=== PATIENT | female | born 1940 | race Two or more races ===

== ENCOUNTER 2023-12-04 06:32 | Day surgery (SDC) | payer OTHER ==
[2023-12-04] MEDS ORDERED: DIPHENHYDRAMINE HCL 50 MG/ML VIAL 1ML IV ONE (09:15)
[2023-12-04] MEDS ORDERED: MIDAZOLAM HCL 2 MG/2 ML VIAL IV ONE (09:15)
[2023-12-04] MEDS ORDERED: fentaNYL CITRATE 50 MCG/ML AMPUL IV ONE (09:15)
[2023-12-04] MEDS ORDERED: ENALAPRILAT DIHYDRATE 2.5 MG/2 ML VIAL IV ONE (09:45)
[2023-12-04] MEDS ORDERED: ENALAPRILAT DIHYDRATE 1.25 MG/ML VIAL IV ONE (09:46)
== END 2023-12-04 12:05 | disposition home or self-care (01) ==
LOC: AMB-ENDOS 06:32 → CIR.AMB 06:32 → AMB-ENDOS 12:05 → CIR.AMB 13:30
PROVIDERS: ATTEND Surgery
DX: K57.30 Diverticulosis of large intestine without perforation or abscess without bleeding (principal); N32.1 Vesicointestinal fistula; K64.8 Other hemorrhoids

== ENCOUNTER 2024-01-30 11:00 | Inpatient (IN) | payer OTHER ==
[~2024-01-30] VITALS: Ht 160 cm; Wt 53.1 kg
[2024-02-02 08:23] VITALS: BP 145/79
[2024-02-02] MEDS ORDERED: LUMIGAN2.5 M1 OP (08:27)
[2024-02-02] MEDS ORDERED: ENALAPRIL MALEA10 MG PO (08:27)
[2024-02-06] MEDS ORDERED: CEFTRIAXONE SODIUM 2,000 MG VIAL IV ONE (12:15)
[2024-02-06] MEDS ORDERED: METRONIDAZOLE/SODIUM CHLORIDE 500 MG/100 ML PIGGYBACK IV ONE (12:15)
[2024-02-06] MEDS ORDERED: METRONIDAZOLE/SODIUM CHLORIDE 500 MG/100 ML PIGGYBACK IV SCH (13:33)
[2024-02-06] MEDS ORDERED: ONDANSETRON HCL 2 MG/ML VIAL IV PRN (13:45)
[2024-02-06] MEDS ORDERED: MORPHINE SULFATE 4 MG/ML CARTRIDGE IV PRN (13:45)
[2024-02-06] MEDS ORDERED: RINGERS SOLUTION,LACTATED 1,000 ML IV SCH (13:45)
[2024-02-06] MEDS ORDERED: OxyCODONE HCL 5 MG TABLET (ROXICODONE) PO PRN (13:45)
[2024-02-06] MEDS ORDERED: SUGAMMADEX SODIUM 200 MG/2 ML VIAL IV ONE (14:30)
[2024-02-06] MEDS ORDERED: ONDANSETRON HCL 2 MG/ML VIAL IV ONE (14:55)
[2024-02-06] MEDS ORDERED: MORPHINE SULFATE 4 MG/ML VIAL IV ONE ×2 (14:55→15:25)
[2024-02-06 17:00] VITALS: BP 180/79; O2SAT 99
[2024-02-06] MEDS ORDERED: HYOSCYAMINE SULFATE 0.125 MG TAB.SUBL SL SCH (17:00)
[2024-02-06] MEDS ORDERED: GABAPENTIN 300 MG CAPSULE PO SCH (17:00)
[2024-02-06] MEDS ORDERED: TAMSULOSIN HCL 0.4 MG CAP PO SCH (17:00)
[2024-02-06] MEDS ORDERED: CIPROFLOXACIN IN 5 % DEXTROSE 400 MG/200 ML PIGGYBAG IV SCH (17:00)
[2024-02-06] MEDS ORDERED: LACTOBACILLUS ACIDOPHILUS 1 CAP CAP PO SCH (17:00)
[2024-02-06] MEDS ORDERED: ACETAMINOPHEN 500 MG GEL..CAP PO SCH (18:00)
[2024-02-06] MEDS ORDERED: FAMOTIDINE/PF 20 MG/2 ML VIAL IV PUSH SCH (21:00)
[2024-02-06 22:45] VITALS: BP 144/76
[2024-02-07 00:40] VITALS: BP 147/70; O2SAT 98
[2024-02-07 08:00] VITALS: BP 142/66; O2SAT 96
[2024-02-07 08:07] LABS: HEMATOCRIT 32.7 % (36.0-45.00); HEMOGLOBIN 11.2 g/dL (12.0-15.00); MEAN CELL VOLUME 93.4 fL (80.00-100.00); MEAN CORPUSCULAR HEMOGLOBIN 32.1 pg (27.00-32.0); MEAN CORPUSCULAR HGB CONC 34.4 g/dl (32.0-36.0); PLATELET COUNT 167 K/uL (150-450); RED CELL DISTRIBUTION WIDTH 13.1 % (11.5-14.5)
[2024-02-07 08:46] LABS: ALBUMIN 2.5 gm/dL (3.4-5.0); CALCIUM 8.1 mg/dL (8.5-10.1); CREATININE SERUM 0.53 mg/dL (0.55-1.02); GFR 110.44; MAGNESIUM 1.6 mg/dL (1.8-2.4); PHOSPHOROUS 2.9 mg/dL (2.5-4.9); POTASSIUM 3.99 mEq/L (3.5-5.1)
[2024-02-07] MEDS ORDERED: MAGNESIUM SULFATE IN WATER 50 ML IV NR (12:30)
[2024-02-07 16:37] VITALS: BP 137/63; O2SAT 95
[2024-02-07] MEDS ORDERED: ENOXAPARIN SODIUM 40 MG/0.4 ML SYRINGE SUBCUTANEO SCH (17:00)
[2024-02-08 00:05] VITALS: BP 105/63; O2SAT 97
[2024-02-08 08:25] VITALS: BP 111/62; O2SAT 93
[2024-02-08] MEDS ORDERED: ENOXAPARIN SODIUM 40 MG/0.4 ML SYRINGE SUBCUTANEO SCH (09:00)
[2024-02-08] MEDS ORDERED: MULTIVIT INFUSN,ADULT 4,VIT K 10 ML VIAL IV NR (10:15)
[2024-02-08] MEDS ORDERED: ENALAPRILAT DIHYDRATE 1.25 MG/ML VIAL IV PRN (14:30)
[2024-02-08 15:20] LABS: HEMATOCRIT 32.1 % (36.0-45.00); MEAN CELL VOLUME 92.7 fL (80.00-100.00); MEAN CORPUSCULAR HEMOGLOBIN 31.7 pg (27.00-32.0); MEAN CORPUSCULAR HGB CONC 34.2 g/dl (32.0-36.0); PLATELET COUNT 159 K/uL (150-450); RED BLOOD COUNT 3.47 M/uL (4.00-6.00); RED CELL DISTRIBUTION WIDTH 13.1 % (11.5-14.5)
[2024-02-08 15:42] LABS: ALBUMIN 2.3 gm/dL (3.4-5.0); BILIRUBIN TOTAL 0.76 mg/dL (0.3-1.2); CALCIUM 8.2 mg/dL (8.5-10.1); CREATININE SERUM 0.54 mg/dL (0.55-1.02); GFR 108.08; GLOBULINA 2.9 G/DL (2.4-3.5); MAGNESIUM 2.1 mg/dL (1.8-2.4); POTASSIUM 3.98 mEq/L (3.5-5.1); TOTAL PROTEIN 5.2 gm/dL (6.4-8.2)
[2024-02-08 16:00] VITALS: BP 109/69; O2SAT 96
[2024-02-09] VITALS: BP 106/68; O2SAT 98
[2024-02-09 07:03] LABS: HEMATOCRIT 30.5 % (36.0-45.00); HEMOGLOBIN 10.4 g/dL (12.0-15.00); MEAN CORPUSCULAR HEMOGLOBIN 32.1 pg (27.00-32.0); MEAN CORPUSCULAR HGB CONC 34.1 g/dl (32.0-36.0); PLATELET COUNT 157 K/uL (150-450); RED BLOOD COUNT 3.25 M/uL (4.00-6.00); RED CELL DISTRIBUTION WIDTH 12.7 % (11.5-14.5)
[2024-02-09 07:33] LABS: CALCIUM 8.1 mg/dL (8.5-10.1); CREATININE SERUM 0.4 mg/dL (0.55-1.02); GFR 152.81; POTASSIUM 3.48 mEq/L (3.5-5.1)
[2024-02-09 08:00] VITALS: BP 92/62; O2SAT 97
[2024-02-09] MEDS ORDERED: PIPERACILLIN/TAZOBACTAM SODIUM 3.375 GM in DEXTROSE 5 % IN WATER 100 ML IV SCH (12:00)
[2024-02-09 13:09] LABS: URINE APPEARANCE Cloudy; URINE BILIRRUBIN Negative (NEGATIVE); URINE BLOOD Small; URINE COLOR Yellow; URINE GLUCOSE Negative (NEGATIVE); URINE LEUKOCYTE Trace; URINE NITRATE Negative; URINE PROTEIN 30 (NEGATIVE); URINE UROBILINOGEN 0.2 E.U./dl
[2024-02-09 13:11] LABS: URINE RBC 121.6 uL (0.0-20.8); URINE WBC 13.2 uL (0.0-23.2)
[2024-02-09 13:42] LABS: URINE CAST 0.91 uL (0.0-1.40); URINE EPITHELIAL CELLS 1.2 uL (0.0-38.8); URINE KETONE 40 (NEGATIVE)
[2024-02-09 13:51] LABS: URINE CRYSTALS FEW /HPF
[2024-02-09 16:57] VITALS: BP 140/70; O2SAT 99
[2024-02-10 00:19] VITALS: BP 135/68; O2SAT 98
[2024-02-10 07:17] LABS: MEAN CELL VOLUME 92.9 fL (80.00-100.00); MEAN CORPUSCULAR HGB CONC 34.4 g/dl (32.0-36.0); PLATELET COUNT 183 K/uL (150-450); RED BLOOD COUNT 3.01 M/uL (4.00-6.00); RED CELL DISTRIBUTION WIDTH 12.9 % (11.5-14.5)
[2024-02-10 07:18] LABS: HEMOGLOBIN 9.6 g/dL (12.0-15.00); MEAN CORPUSCULAR HEMOGLOBIN 31.8 pg (27.00-32.0)
[2024-02-10 08:00] VITALS: BP 116/60; O2SAT 100
[2024-02-10] MEDS ORDERED: POTASSIUM CHLORIDE IN WATER 100 ML IV NR (08:00)
[2024-02-10 08:09] LABS: ALBUMIN 2.1 gm/dL (3.4-5.0); BILIRUBIN TOTAL 1.17 mg/dL (0.3-1.2); CALCIUM 7.9 mg/dL (8.5-10.1); CREATININE SERUM 0.32 mg/dL (0.55-1.02); GFR 197.69; GLOBULINA 2.9 G/DL (2.4-3.5); POTASSIUM 3.56 mEq/L (3.5-5.1)
[2024-02-10 08:18] LABS: C-REACTIVE PROTEIN 17.6 MG/DL (0.00-0.29)
[2024-02-10 08:21] LABS: PHOSPHOROUS 1.6 mg/dL (2.5-4.9)
[2024-02-10] MEDS ORDERED: POTASSIUM PHOS,M-BASIC-D-BASIC 3 MM/ML VIAL IV SCH (12:00)
[2024-02-10 16:32] VITALS: BP 127/64; O2SAT 98
[2024-02-11 02:17] VITALS: BP 148/77; O2SAT 97
[2024-02-11] MEDS ORDERED: POTASSIUM PHOS,M-BASIC-D-BASIC 3 MM/ML VIAL IV SCH (06:49)
[2024-02-11] MEDS ORDERED: ENALAPRILAT DIHYDRATE 1.25 MG/ML VIAL IV PRN (06:50)
[2024-02-11 08:57] VITALS: BP 144/69; O2SAT 93
[2024-02-11] MEDS ORDERED: ENALAPRIL MALEATE 10 MG TABLET PO SCH (09:00)
[2024-02-11] MEDS ORDERED: MEROPENEM 500 MG/VIAL VIAL IV SCH (14:00)
[2024-02-11 14:04] LABS: ALBUMIN 2.2 gm/dL (3.4-5.0); BILIRUBIN TOTAL 1.15 mg/dL (0.3-1.2); CALCIUM 8.3 mg/dL (8.5-10.1); GFR 251.22; MAGNESIUM 1.9 mg/dL (1.8-2.4); PHOSPHOROUS 2.5 mg/dL (2.5-4.9); POTASSIUM 4.16 mEq/L (3.5-5.1); TOTAL PROTEIN 5.2 gm/dL (6.4-8.2)
[2024-02-11 14:05] LABS: CREATININE SERUM 0.26 mg/dL (0.55-1.02)
[2024-02-11 17:05] VITALS: BP 137/68; O2SAT 98
[2024-02-12 09:52] VITALS: BP 137/64; O2SAT 96
[2024-02-12] MEDS ORDERED: LACTOBACILLUS ACIDOPHILUS 1 CAP CAP PO SCH (13:00)
[2024-02-12 17:20] VITALS: BP 125/74; O2SAT 94
[2024-02-13 03:07] VITALS: BP 115/64; O2SAT 95
[2024-02-13 10:18] VITALS: BP 149/75; O2SAT 97
[2024-02-13 10:20] LABS: PH,URINE 7.5 (5.0-8.0); URINE APPEARANCE Clear; URINE BILIRRUBIN Negative (NEGATIVE); URINE BLOOD Negative; URINE COLOR Yellow; URINE GLUCOSE Negative (NEGATIVE); URINE KETONE 15 (NEGATIVE); URINE LEUKOCYTE Negative; URINE NITRATE Negative; URINE PROTEIN Negative (NEGATIVE); URINE UROBILINOGEN 0.2 E.U./dl
[2024-02-13 10:25] LABS: URINE BACTERIA 6.2 uL (0.0-1933); URINE EPITHELIAL CELLS 26.1 uL (0.0-38.8); URINE RBC 5.3 uL (0.0-20.8); URINE WBC 2.9 uL (0.0-23.2)
[2024-02-13 17:30] VITALS: BP 136/66; O2SAT 97
[2024-02-14 00:15] VITALS: BP 118/74; O2SAT 97
[2024-02-14 09:40] LABS: HEMATOCRIT 29.5 % (36.0-45.00); HEMOGLOBIN 10.2 g/dL (12.0-15.00); MEAN CELL VOLUME 94.3 fL (80.00-100.00); MEAN CORPUSCULAR HEMOGLOBIN 32.7 pg (27.00-32.0); MEAN CORPUSCULAR HGB CONC 34.7 g/dl (32.0-36.0); PLATELET COUNT 303 K/uL (150-450); RED BLOOD COUNT 3.13 M/uL (4.00-6.00); RED CELL DISTRIBUTION WIDTH 13.2 % (11.5-14.5)
[2024-02-14 10:17] VITALS: BP 81/66; O2SAT 98
[2024-02-14 10:23] LABS: GFR 240.51; POTASSIUM 3.7 mEq/L (3.5-5.1)
[2024-02-14 10:25] LABS: CREATININE SERUM 0.27 mg/dL (0.55-1.02)
[2024-02-14] MEDS ORDERED: RINGERS SOLUTION,LACTATED 1,000 ML IV STA (10:28)
[2024-02-14 13:00] VITALS: BP 138/80
[2024-02-14 16:00] VITALS: BP 122/64; O2SAT 95
[2024-02-15 00:39] VITALS: BP 105/79; O2SAT 97
[2024-02-15 08:45] VITALS: BP 158/79; O2SAT 97
[2024-02-15] MEDS ORDERED: ACETAMINOPHEN500 M2 PO (10:12)
[2024-02-15] MEDS ORDERED: NEURONTIN300 MG PO (10:12)
== END 2024-02-15 11:18 | disposition home or self-care (01) | DRG 330 ==
LOC: SURH 02-06 07:00 → O/R 02-06 07:02 → SURH 02-06 11:00
PROVIDERS: Internal Medicine; Internal Medicine Infectious Disease; ADMIT Surgery; ATTEND Surgery
PROC: 0DBP4ZZ Excision of Rectum, Percutaneous Endoscopic Approach (ICD-10-PCS; 2024-02-06)
PROC: 0DJD8ZZ Inspection of Lower Intestinal Tract, Via Natural or Artificial Opening Endoscopic (ICD-10-PCS; 2024-02-06)
PROC: 0DTN4ZZ Resection of Sigmoid Colon, Percutaneous Endoscopic Approach (ICD-10-PCS; principal; 2024-02-06 07:00)
PROC: 0TBB4ZZ Excision of Bladder, Percutaneous Endoscopic Approach (ICD-10-PCS; 2024-02-11)
PROC: 02HV33Z Insertion of Infusion Device into Superior Vena Cava, Percutaneous Approach (ICD-10-PCS; 2024-02-11)
DX: K57.20 Diverticulitis of large intestine with perforation and abscess without bleeding (principal); K56.7 Ileus, unspecified; N32.1 Vesicointestinal fistula; K91.89 Other postprocedural complications and disorders of digestive system; N39.0 Urinary tract infection, site not specified; Z16.12 Extended spectrum beta lactamase (ESBL) resistance; I10 Essential (primary) hypertension; E78.5 Hyperlipidemia, unspecified; B96.20 Unspecified Escherichia coli [E. coli] as the cause of diseases classified elsewhere; I95.81 Postprocedural hypotension

== ENCOUNTER 2024-02-23 16:55 | Inpatient (IN) | payer OTHER ==
[~2024-02-23] VITALS: Ht 154.9 cm; Wt 50.8 kg
[~2024-02-23 16:55] MED LIST: ACETAMINOPHEN500 M2 PO; ENALAPRIL MALEA10 MG PO; LUMIGAN2.5 M1 OP; NEURONTIN300 MG PO
--- NOTE | 2024-02-23 17:36 | NUR ---
SE RECIBE PACIENTE ALERTA Y ORIENTADA X3 EN COMPANIA DE FAMILIAR LA CUAL AL [place] REFIERE VENIR A CAUSA DE DOLOR ABDOMINAL DAYANARA. PACIENTE NOTIFICA QUE DR. JEFFERS RAPALEZ LA OPERO EL PASADO DONDE LE REMOVIERON 2OCM DE INTESTINO.
[2024-02-23] MEDS ORDERED: FAMOTIDINE/PF 20 MG in 0.9 % SODIUM CHLORIDE 8 ML IV PUSH STA (18:20)
[2024-02-23] MEDS ORDERED: 0.9 % SODIUM CHLORIDE 1,000 ML IV SCH (18:30)
[2024-02-23] MEDS ORDERED: KETOROLAC TROMETHAMINE 30 MG VIAL IV ONE (18:30)
[2024-02-23 19:13] LABS: HEMATOCRIT 32.3 % (36.0-45.00); MEAN CELL VOLUME 92.2 fL (80.00-100.00); MEAN CORPUSCULAR HEMOGLOBIN 31.3 pg (27.00-32.0); PLATELET COUNT 398 K/uL (150-450); RED BLOOD COUNT 3.51 M/uL (4.00-6.00); RED CELL DISTRIBUTION WIDTH 13.4 % (11.5-14.5)
--- NOTE | 2024-02-23 19:25 | NUR ---
SE ORIENTA A PACIENTE SOBRE ORDENES MEDICAS. SE COLECTAN MUESTRAS DE LABORATORIO BAJO MEDIDAS ASEPTICAS. SE CANALIZA Y SE ADMINISTRAN MEDICAMENTOS JANE ORDEN MEDICA. SE NOTIFICA CT/IV.
[2024-02-23 19:34] LABS: ALBUMIN 2.6 gm/dL (3.4-5.0); BILIRUBIN TOTAL 0.41 mg/dL (0.3-1.2); CALCIUM 9.5 mg/dL (8.5-10.1); CREATININE SERUM 0.47 mg/dL (0.55-1.02); GFR 126.86; GLOBULINA 5.1 G/DL (2.4-3.5); POTASSIUM 3.93 mEq/L (3.5-5.1); TOTAL PROTEIN 7.7 gm/dL (6.4-8.2)
[2024-02-23 19:45] LABS: INR 1.18; PARTIAL THROMBOPLASTIN TIME 26.4 SECONDS (22.0-34.0); PROTHROMBIN TIME 12.7 SECONDS (9.0-11.5)
[2024-02-24] MEDS ORDERED: PIPERACILLIN/TAZOBACTAM SODIUM 3.375 GM VIAL IV STA (00:23)
[2024-02-24] MEDS ORDERED: METOCLOPRAMIDE HCL 5 MG/ML VIAL IM STA (04:37)
[2024-02-24] MEDS ORDERED: ONDANSETRON HCL 2 MG/ML VIAL IV STA (04:38)
[2024-02-24] MEDS ORDERED: MORPHINE SULFATE 4 MG/ML VIAL IV STA (05:47)
--- NOTE | 2024-02-24 07:32 | NUR ---
PTE FEMENINA DE 83 YRS ALERTA CONCIENTE Y TRANQUILA EN CAMA CON BARANDAS ELEVADA Y,PTE CON IVF'S PATENTE ,PTE CONSULTADA CON EL DR.RODRIGUEZ ZELAYA LA CUAL SE NOTIFICA LA CONSULTA POR EL ZHEN CARRANZA. SE LE LOBO S/V Y SE MANTIENE BAJO OBSERVACION.
[2024-02-24 09:00] VITALS: BP 114/65
[2024-02-24] MEDS ORDERED: FAMOTIDINE/PF 20 MG/2 ML VIAL IV PUSH SCH (10:27)
[2024-02-24] MEDS ORDERED: RINGERS SOLUTION,LACTATED 1,000 ML IV SCH (10:30)
[2024-02-24] MEDS ORDERED: MORPHINE SULFATE 4 MG/ML CARTRIDGE IV PRN (10:30)
[2024-02-24] MEDS ORDERED: ONDANSETRON HCL 2 MG/ML VIAL IV PRN (10:30)
[2024-02-24 10:50] VITALS: BP 120/85; O2SAT 96
[2024-02-24] MEDS ORDERED: PIPERACILLIN/TAZOBACTAM SODIUM 3.375 GM in 0.9 % SODIUM CHLORIDE 100 ML IV SCH (12:00)
[2024-02-24] MEDS ORDERED: HYOSCYAMINE SULFATE 0.125 MG TAB.SUBL SL SCH (13:00)
[2024-02-24 13:32] VITALS: BP 158/69; O2SAT 98
[2024-02-24] MEDS ORDERED: MEROPENEM 500 MG/VIAL VIAL IV NR (15:00)
[2024-02-24 16:00] VITALS: BP 134/67; O2SAT 96
[2024-02-24] MEDS ORDERED: AA 4.25%/CAL/LYTES/DEXT 5% 1,000 ML PERIFERAL SCH (17:00)
[2024-02-24] MEDS ORDERED: VANCOMYCIN HCL 5 MG/ML REDILUIDO IV SCH (17:00)
[2024-02-24] MEDS ORDERED: MEROPENEM 500 MG/VIAL VIAL IV SCH (20:00)
[2024-02-24 21:32] LABS: URINE APPEARANCE Clear; URINE BILIRRUBIN Negative (NEGATIVE); URINE BLOOD Negative; URINE COLOR Yellow; URINE GLUCOSE Negative (NEGATIVE); URINE KETONE 15 (NEGATIVE); URINE LEUKOCYTE Negative; URINE NITRATE Negative; URINE PROTEIN Trace (NEGATIVE); URINE UROBILINOGEN 0.2 E.U./dl
[2024-02-24 21:36] LABS: URINE BACTERIA 20.1 uL (0.0-1933); URINE EPITHELIAL CELLS 18.2 uL (0.0-38.8); URINE RBC 11.4 uL (0.0-20.8)
[2024-02-24 21:42] LABS: URINE CAST 0.15 uL (0.0-1.40)
[2024-02-25 00:30] VITALS: BP 119/76; O2SAT 97
[2024-02-25 07:51] LABS: HEMATOCRIT 28.5 % (36.0-45.00); HEMOGLOBIN 9.7 g/dL (12.0-15.00); MEAN CELL VOLUME 91.5 fL (80.00-100.00); MEAN CORPUSCULAR HEMOGLOBIN 31.3 pg (27.00-32.0); MEAN CORPUSCULAR HGB CONC 34.2 g/dl (32.0-36.0); PLATELET COUNT 280 K/uL (150-450); RED BLOOD COUNT 3.11 M/uL (4.00-6.00); RED CELL DISTRIBUTION WIDTH 13.1 % (11.5-14.5)
[2024-02-25 08:20] LABS: ALBUMIN 2.1 gm/dL (3.4-5.0); CALCIUM 8.2 mg/dL (8.5-10.1); CREATININE SERUM 0.31 mg/dL (0.55-1.02); GFR 205.07; MAGNESIUM 1.8 mg/dL (1.8-2.4); PHOSPHOROUS 2.9 mg/dL (2.5-4.9); POTASSIUM 3.88 mEq/L (3.5-5.1)
[2024-02-25 10:51] VITALS: BP 122/74; O2SAT 96
[2024-02-25 16:00] VITALS: BP 133/76; O2SAT 97
[2024-02-25] MEDS ORDERED: ENOXAPARIN SODIUM 40 MG/0.4 ML SYRINGE SUBCUTANEO SCH (17:00)
[2024-02-25] MEDS ORDERED: hydrALAZINE HCL 20 MG VIAL IV PRN (17:00)
[2024-02-26] VITALS: BP 147/67; O2SAT 97
[2024-02-26 08:00] VITALS: BP 137/66; O2SAT 98
[2024-02-26] MEDS ORDERED: ENOXAPARIN SODIUM 40 MG/0.4 ML SYRINGE SUBCUTANEO SCH (09:00)
[2024-02-26 15:00] VITALS: BP 144/67; O2SAT 95
[2024-02-26] MEDS ORDERED: VANCOMYCIN HCL 1,000 MG VIAL IV SCH (17:00)
[2024-02-27 01:08] VITALS: BP 138/84; O2SAT 97
[2024-02-27 07:04] LABS: HEMATOCRIT 34.2 % (36.0-45.00); HEMOGLOBIN 11.5 g/dL (12.0-15.00); MEAN CELL VOLUME 92.4 fL (80.00-100.00); MEAN CORPUSCULAR HGB CONC 33.5 g/dl (32.0-36.0); PLATELET COUNT 315 K/uL (150-450); RED CELL DISTRIBUTION WIDTH 13.3 % (11.5-14.5)
[2024-02-27 07:40] LABS: ALBUMIN 2.5 gm/dL (3.4-5.0); BILIRUBIN TOTAL 0.35 mg/dL (0.3-1.2); C-REACTIVE PROTEIN 5.76 MG/DL (0.00-0.29); CALCIUM 8.7 mg/dL (8.5-10.1); CREATININE SERUM 0.32 mg/dL (0.55-1.02); GFR 197.69; GLOBULINA 4.2 G/DL (2.4-3.5); MAGNESIUM 2.2 mg/dL (1.8-2.4); PHOSPHOROUS 3.1 mg/dL (2.5-4.9); POTASSIUM 4.41 mEq/L (3.5-5.1); TOTAL PROTEIN 6.7 gm/dL (6.4-8.2)
[2024-02-27 08:00] VITALS: BP 140/85; O2SAT 97
[2024-02-27] MEDS ORDERED: PANTOPRAZOLE SODIUM 40 MG/VIAL VIAL IV NR (11:00)
[2024-02-27 16:00] VITALS: BP 131/71; O2SAT 95
[2024-02-28 01:08] VITALS: BP 137/72; O2SAT 97
[2024-02-28] MEDS ORDERED: PANTOPRAZOLE SODIUM 40 MG/VIAL VIAL IV SCH (09:00)
[2024-02-28 10:13] VITALS: BP 130/76; O2SAT 98
[2024-02-28 16:34] VITALS: BP 136/75; O2SAT 97
[2024-02-28] MEDS ORDERED: MENTHOL/CETYLPYRD CL 1 LOZENGE MM PRN (19:30)
[2024-02-29 01:19] VITALS: BP 141/71; O2SAT 95
[2024-02-29 10:38] VITALS: BP 141/75; O2SAT 98
[2024-02-29 16:00] VITALS: BP 148/68; O2SAT 95
[2024-02-29 23:50] VITALS: BP 131/78; O2SAT 96
[2024-03-01 06:26] LABS: HEMATOCRIT 33.2 % (36.0-45.00); MEAN CELL VOLUME 92.9 fL (80.00-100.00); MEAN CORPUSCULAR HEMOGLOBIN 30.6 pg (27.00-32.0); PLATELET COUNT 300 K/uL (150-450); RED BLOOD COUNT 3.57 M/uL (4.00-6.00); RED CELL DISTRIBUTION WIDTH 13.7 % (11.5-14.5)
[2024-03-01 07:27] LABS: ALBUMIN 2.7 gm/dL (3.4-5.0); BILIRUBIN TOTAL 0.37 mg/dL (0.3-1.2); BILIRUBIN,CONJUGATED 0.12 mg/dL (0.0-0.2); BILIRUBIN,UNCONJUGATED 0.25 mg/dL (0.0-0.6); CALCIUM 8.9 mg/dL (8.5-10.1); CHOL HDL RATIO 3.1 (0-5.0); CREATININE SERUM 0.38 mg/dL (0.55-1.02); GFR 162.13; GLOBULINA 3.9 G/DL (2.4-3.5); MAGNESIUM 2.2 mg/dL (1.8-2.4); POTASSIUM 5.02 mEq/L (3.5-5.1); TOTAL PROTEIN 6.6 gm/dL (6.4-8.2)
[2024-03-01] MEDS ORDERED: MENTHOL/CETYLPYRD CL 1 LOZENGE MM PRN (07:30)
[2024-03-01 07:37] LABS: INR 1.14; PARTIAL THROMBOPLASTIN TIME 26.8 SECONDS (22.0-34.0); PROTHROMBIN TIME 12.3 SECONDS (9.0-11.5)
[2024-03-01 08:31] VITALS: BP 116/76; O2SAT 95
[2024-03-01 08:41] LABS: UREA CLEARANCE 42.6 ML/MIN
[2024-03-01] MEDS ORDERED: DIATRIZOATE MEGLUMINE, SODIUM 30 ML BOTTLE PO NR (09:54)
[2024-03-01 16:28] VITALS: BP 131/77; O2SAT 95
[2024-03-02] VITALS: BP 119/71; O2SAT 97
[2024-03-02 08:17] VITALS: BP 156/79; O2SAT 100
[2024-03-02 18:49] VITALS: BP 132/80; O2SAT 95
[2024-03-03] VITALS: BP 128/65; O2SAT 99
[2024-03-03 09:00] VITALS: BP 141/76; O2SAT 99
[2024-03-03 16:00] VITALS: BP 127/78; O2SAT 99
[2024-03-04] VITALS: BP 102/49; O2SAT 96
[2024-03-04 06:36] LABS: ALBUMIN 2.6 gm/dL (3.4-5.0); BILIRUBIN TOTAL 0.29 mg/dL (0.3-1.2); CALCIUM 8.8 mg/dL (8.5-10.1); CREATININE SERUM 0.44 mg/dL (0.55-1.02); GFR 136.9; GLOBULINA 3.5 G/DL (2.4-3.5); MAGNESIUM 1.9 mg/dL (1.8-2.4); POTASSIUM 4.86 mEq/L (3.5-5.1); TOTAL PROTEIN 6.1 gm/dL (6.4-8.2)
[2024-03-04 06:37] LABS: HEMATOCRIT 30.7 % (36.0-45.00); HEMOGLOBIN 10.5 g/dL (12.0-15.00); MEAN CELL VOLUME 90.9 fL (80.00-100.00); MEAN CORPUSCULAR HEMOGLOBIN 31.2 pg (27.00-32.0); MEAN CORPUSCULAR HGB CONC 34.3 g/dl (32.0-36.0); PLATELET COUNT 241 K/uL (150-450); RED BLOOD COUNT 3.38 M/uL (4.00-6.00)
[2024-03-04 08:21] VITALS: BP 119/69; O2SAT 97
[2024-03-04 16:00] VITALS: BP 113/72; O2SAT 95
[2024-03-05] VITALS: BP 121/65; O2SAT 97
[2024-03-05] MEDS ORDERED: FAMOTIDINE/PF 20 MG/2 ML VIAL IV PUSH STA (00:48)
[2024-03-05 08:00] VITALS: BP 138/66; O2SAT 98
[2024-03-05] MEDS ORDERED: PANTOPRAZOLE SODIUM 40 MG TABLET.DR PO SCH (09:00)
[2024-03-05 16:20] VITALS: BP 106/55; O2SAT 97
[2024-03-05] MEDS ORDERED: FAMOTIDINE/PF 20 MG/2 ML VIAL IV PUSH SCH (21:00)
== END 2024-03-05 20:54 | disposition home or self-care (01) | DRG 388 ==
LOC: ER 16:57 → SURH 02-24 10:41
PROVIDERS: General Practice; Internal Medicine; Internal Medicine Infectious Disease; ADMIT Surgery; ATTEND Surgery
PROC: 02HV33Z Insertion of Infusion Device into Superior Vena Cava, Percutaneous Approach (ICD-10-PCS; principal; 2024-02-24)
PROC: BW21YZZ Computerized Tomography (CT Scan) of Abdomen and Pelvis using Other Contrast (ICD-10-PCS; 2024-03-01)
DX: K56.699 Other intestinal obstruction unspecified as to partial versus complete obstruction (principal); K65.1 Peritoneal abscess; I10 Essential (primary) hypertension; K57.30 Diverticulosis of large intestine without perforation or abscess without bleeding